=== PATIENT | female | born 1980 | race Two or more races ===

== ENCOUNTER 2019-05-16 14:55 | Emergency (ER) | payer SELFPAY ==
[~2019-05-16] VITALS: Ht 152.4 cm; Wt 89.8 kg
--- NOTE | 2019-05-16 15:20 | NUR ---
ED Nurse Note: MD Erazo pt pain in chest 11/20 and asking for pain meds.
--- NOTE | 2019-05-16 15:30 | NUR ---
ED Nurse Note: Pt brought into ED for chest pain L side aching since last night 1999. Pt pain is radiating to L arm. Pt has nausea, no vomioting. Pt is alert and orientedx4, ambulatory. Pt is set up on monitor. Pt has hx of hysterectomy and pyelonephritis.
[2019-05-16 16:07] VITALS: BP 117/70
[2019-05-16] MEDS ORDERED: Ketorolac 60mg Inj IM ONE (16:23)
--- NOTE | 2019-05-16 16:23 | Diagnostic Imaging Report ---
Indication: Dyspnea Comparison: None A single view chest radiograph was obtained. Findings: Cardiomediastinal appearance is within normal limits for age. The lungs are clear. Pulmonary vascularity is appropriate. The diaphragmatic contour is smooth and costophrenic angles are sharp. No pleural effusions are identified. The bones are unremarkable. Impression: No acute findings
[2019-05-16] MEDS: HYDROcodone/Acetamin 5/325 tab ORAL ONE ×2 (17:14→17:23)
--- NOTE | 2019-05-16 17:18 | NUR ---
ED Nurse Note: Pt walked out of room fully dressed with belongings and states she doesn't want to be here any more and wants to go to doubling machine [facility]. Dr Erazo spoke to pt regarding risks and AMA form signed by MD and pt. PT verbalizes understanding. No IV in place. Pt took all belongings.
[2019-05-16 17:23] LABS: BASOPHILS % (AUTO) 0.9 % (0.0-2.0); EOSINOPHILS % (AUTO) 4.5 % (0.0-3.0); HEMATOCRIT 34.2 % (37.0-47.0); HEMOGLOBIN 9.7 G/DL (12.0-16.0); LYMPHOCYTES % (AUTO) 13.6 % (20.0-45.0); MEAN CORPUSCULAR VOLUME 76 FL (80-99); MONOCYTES % (AUTO) 4.6 % (1.0-10.0); NEUTROPHILS % (AUTO) 76.5 % (45.0-75.0); PLATELET COUNT 416 K/UL (150-450); RED BLOOD COUNT 4.48 M/UL (4.20-5.40); RED CELL DISTRIBUTION WIDTH 22.3 % (11.6-14.8); WHITE BLOOD COUNT 11.3 K/UL (4.8-10.8)
--- NOTE | 2019-05-16 17:24 | NUR ---
ED Nurse Note: Patient refused [place] when attempting to give her the medication and eloped
[2019-05-16 17:26] LABS: ANION GAP 11 mmol/L (5-15); BLOOD UREA NITROGEN 9 mg/dL (7-18); CALCIUM 9.2 MG/DL (8.5-10.1); CARBON DIOXIDE 25 MMOL/L (21-32); CHLORIDE 108 MMOL/L (98-107); CREATININE 0.7 MG/DL (0.55-1.30); POTASSIUM 3.3 MMOL/L (3.5-5.1); SODIUM 144 MMOL/L (136-145)
[2019-05-16 17:31] LABS: ALANINE AMINOTRANSFERASE 35 U/L (12-78); ALBUMIN 3.8 G/DL (3.4-5.0); ALBUMIN/GLOBULIN RATIO 0.9 (1.0-2.7); ALKALINE PHOSPHATASE 165 U/L (46-116); ASPARTATE AMINO TRANSFERASE 26 U/L (15-37); BILIRUBIN,TOTAL 0.3 MG/DL (0.2-1.0); CREATINE KINASE 53 U/L (26-308)
--- NOTE | 2019-05-16 18:40 | Emergency Room Report ---
History of Present Illness General Chief Complaint: Chest Pain Source: Patient Present Illness HPI This patient states that she has had chest pain since last night around 11 PM. Patient states she does have a history of a PE many years ago and was concerned she has another PE. She denies that she has had leg swelling. She states that she was recently admitted to the hospital for pyelonephritis and did have a PICC line that was removed 2 days ago. She states that she is a very hard IV stick. She states that they have even tried sticking her arteries in the past to obtain blood. She states that she would like lab work rather than an IV to start because it can never be obtained. She denies fever or chills. She denies nausea or vomiting. She denies cough or congestion. She states that she was recently admitted to [facility]. She has no other complaints. Allergies: Coded Allergies: No Known Allergies (Unverified , 05/16/19) Patient History Past Medical History: see triage record, other - Recent pyelonephritis, hx of Mitral valve repair, Hx of DVT and PE. (no longer on anticoagulation for many years) Past Surgical History: other - Mitral valve repair Social History: Denies: smoking, alcohol use, drug use Last Menstrual Period: 09/2012 Reviewed Nursing Documentation: PMH: Agreed; PSxH: Agreed Nursing Documentation-PMH Past Medical History: No History, Except For Review of Systems All Other Systems: negative except mentioned in HPI Physical Exam Vital Signs Date Time Temp Pulse Resp B/P (MAP) Pulse Ox O2 Delivery O2 Flow Rate FiO2 05/16/19 15:11 99.0 91 17 119/79 (92) 100 Room Air 05/16/19 16:07 98 Sp02 EP Interpretation: reviewed, normal General Appearance: no apparent distress, alert, GCS 15, non-toxic Head: normocephalic, atraumatic Eyes: bilateral eye normal inspection, bilateral eye PERRL ENT: hearing grossly normal, normal pharynx, no angioedema, normal voice Neck: normal inspection, full range of motion Respiratory: chest non-tender, lungs clear, normal breath sounds, no respiratory distress, no retraction, no accessory muscle use, speaking full sentences Cardiovascular #1: regular rate, rhythm, no edema Rectal: deferred Musculoskeletal: back normal, normal range of motion, gait/station normal, non- tender Neurologic: alert, motor strength/tone normal, oriented x3, sensory intact, responsive, speech normal Psychiatric: judgement/insight normal, memory normal, mood/affect normal, no suicidal/homicidal ideation Skin: no rash, normal color Medical Decision Making Diagnostic Impression: Primary Impression: Chest pain ER Course This patient had presented with chest pain. She stated concern that she could have a PE. She also was requesting injectable narcotics immediately during my initial evaluation. I am concerned the patient may have some narcotic dependence. The patient had declined attempt at an IV. We were able to obtain a lab draw. The patient was given oral Waldron after declining any nonnarcotic medications. Shortly after obtaining the Waldron and realizing the patient was not getting injectable narcotics, she left AGAINST MEDICAL ADVICE without final laboratory results obtained. I had discussed with the patient that to truly rule out a PE I would need to obtain a CT of the chest. The patient stated that she did not feel she had any emergency medical condition and departed the emergency department AGAINST MEDICAL ADVICE without any of her results. After she left, her d-dimer was slightly elevated. Likely this was secondary to her recent infection, however, given that she left AGAINST MEDICAL ADVICE and I was unable to discuss with her and I was also unable to obtain a CT of the chest. Patient's work-up was non-complete. Laboratory Tests Test 05/16/19 16:10 White Blood Count 11.3 K/UL (4.8-10.8) H Red Blood Count 4.48 M/UL (4.20-5.40) Hemoglobin 9.7 G/DL (12.0-16.0) L Hematocrit 34.2 % (37.0-47.0) L Mean Corpuscular Volume 76 FL (80-99) L Mean Corpuscular Hemoglobin 21.7 PG (27.0-31.0) L Mean Corpuscular Hemoglobin Concent 28.4 G/DL (32.0-36.0) L Red Cell Distribution Width 22.3 % (11.6-14.8) H Platelet Count 416 K/UL (150-450) Mean Platelet Volume 7.9 FL (6.5-10.1) Neutrophils (%) (Auto) 76.5 % (45.0-75.0) H Lymphocytes (%) (Auto) 13.6 % (20.0-45.0) L Monocytes (%) (Auto) 4.6 % (1.0-10.0) Eosinophils (%) (Auto) 4.5 % (0.0-3.0) H Basophils (%) (Auto) 0.9 % (0.0-2.0) D-Dimer 1.40 mg/L FEU (0.00-0.49) H Sodium Level 144 MMOL/L (136-145) Potassium Level 3.3 MMOL/L (3.5-5.1) L Chloride Level 108 MMOL/L (98-107) H Carbon Dioxide Level 25 MMOL/L (21-32) Anion Gap 11 mmol/L (5-15) Blood Urea Nitrogen 9 mg/dL (7-18) Creatinine 0.7 MG/DL (0.55-1.30) Estimate Glomerular Filtration Rate > 60 mL/min (>60) Glucose Level 95 MG/DL (74-106) Calcium Level 9.2 MG/DL (8.5-10.1) Total Bilirubin 0.3 MG/DL (0.2-1.0) Aspartate Amino Transferase (AST) 26 U/L (15-37) Alanine Aminotransferase (ALT) 35 U/L (12-78) Alkaline Phosphatase 165 U/L (46-116) H Total Creatine Kinase 53 U/L (26-308) Troponin I 0.000 ng/mL (0.000-0.056) Total Protein 7.9 G/DL (6.4-8.2) Albumin 3.8 G/DL (3.4-5.0) Globulin 4.1 g/dL Albumin/Globulin Ratio 0.9 (1.0-2.7) L EKG Diagnostic Results Rate: normal Rhythm: NSR ST Segments: no acute changes Rhythm Strip Diag. Results EP Interpretation: yes Rate: 80's Rhythm: NSR, no PVC's, no ectopy Chest X-Ray Diagnostic Results Chest X-Ray Diagnostic Results : Chest X-Ray Ordered: Yes # of Views/Limited/Complete: 1 View Indication: Chest Pain EP Interpretation: Yes Interpretation: no consolidation, no effusion, no pneumothorax, no acute cardiopulmonary disease Impression: No acute disease Electronically Signed by: Shanice Erazo DO Last Vital Signs Date Time Temp Pulse Resp B/P (MAP) Pulse Ox O2 Delivery O2 Flow Rate FiO2 05/16/19 16:07 99.0 87 18 117/70 98 Room Air 05/16/19 16:07 98 Disposition: AGAINST MEDICAL ADVICE Condition: Stable Shanice Erazo DO May 16, 2019 18:40
== END 2019-05-16 17:24 | disposition left against medical advice (07) ==
LOC: EMR 15:40
DX: R07.9 Chest pain, unspecified (principal); Z86.718 Personal history of other venous thrombosis and embolism; Z98.890 Other specified postprocedural states; Z53.29 Procedure and treatment not carried out because of patient's decision for other reasons
CPT/HCPCS: 36415; 71045; 80053; 82550; 84484; 85025; 85379; 93005; 99283